=== PATIENT | female | born 1945 | race Caucasian/White ===

== ENCOUNTER 2019-07-13 11:37 | Inpatient (IN) | payer MEDICARE, BC ==
[~2019-07-13] VITALS: Ht 162.6 cm; Wt 57.2 kg
[2019-07-13] MEDS ORDERED: LOSA100T3 PO (11:55)
[2019-07-13] MEDS ORDERED: QUET25TA PO (11:55)
[2019-07-13] MEDS ORDERED: CHLO25TA2 PO (11:55)
[2019-07-13] MEDS ORDERED: TAMO20TA4 PO (11:55)
[2019-07-13] MEDS ORDERED: LORA-114 PO (11:55)
[2019-07-13] MEDS ORDERED: FLUT9.9S NS (11:55)
--- NOTE | 2019-07-13 12:28 | NUR ---
MRSA swabb collected and delivered to lab.
--- NOTE | 2019-07-13 12:37 | NUR ---
Patient belongings accounted for and patient is eating lunch and tolerating meal 100%.
--- NOTE | 2019-07-13 12:50 | NUR ---
Patient requested to make telephone call to her daughter. Telephone provided.
--- NOTE | 2019-07-13 14:05 | NUR ---
Telephone report given to receiving rn. by rn Jose Alfredo and patient taken via gurney to room 141A. Patient accompanied by family. AAOx3. vitals stable. belongings sent with patient.
--- NOTE | 2019-07-13 14:17 | NUR ---
PT ARRIVED TO UNIT ON GURNEY ACCOMPANIED BY DAUGHTER AND MINOR GRANDSON. INFORMED DAUGHTER THAT MINORS ARE NOT ALLOWED IN THE UNIT FOR SAFETY REASONS. PT'S DAUGHTER THEN BECAME QUITE AGGRESSIVE, RAISING HER VOICE "I KNOW! WHY ARE YOU BEING SO AGGRESSIVE?" BUT DAUGHTER CONTINUED NOT TAKING MINOR CHILD OUT ONLY UNIT FREQUENT REINFORCEMENT. STATED SHE WANTED TO SPEAK TO FIELD SPEC OUTSIDE. PT'S DAUGHTER THEN BEGAN BECOMING VERY VERBALLY AGGRESSIVE, REITERATING THAT SHE WANTED TO SPEAK MORE ABOUT HER MOTHERS CARE. REITERATED THAT SHE KNOWS ALL THE POLICIES BECAUSE 'I'M A CLINICAL PSYCHOLOGIST, I'M BASICALLY A DOCTOR." CONTINUES TO BE QUITE AGGRESSIVE, GETTING INTO WRITERS CLOSE PERSONAL SPACE. REQUESTED TO PLEASE STEP AWAY A BIT, PT'S DAUGHTER RESPONDED "I'M NOT GETTING IN YOUR FACE, I AIN'T GONNA HIT YOU, DON'T FLATTER YOURSELF." SECURITY PRESENT DURING INTERACTION. REQUESTED TO SPEAK TO STAFF NURSE. STAFF NURSE SPEAKING TO DAUGHTER AT THIS TIME.
--- NOTE | 2019-07-13 14:20 | NUR ---
Gps.Light Truck Driver- Staff able to talked to Anne (daughter) outside the door, off the unit, with Salesperson Jewelry around. Informations obtained, daughter has a son that is a minor and unable to speak well(delayed) Daughter lives outside the [place], claimed she's from [place], flying back and forth when the Home health staff calls her and reports patient noted having visual hallucinations, , claiming her students are having sex on her table ,patient also not taking her seroquel as prescribed by her PCP.Per daughter ,patient gets agitated when being confronted when not taking her medications. Per daughter patient pt. ends up in [facility] [place] in a gas station with no shoes and no purse .Claimed hallucinations started on June 17 started her on seroquel [address] Eagle . Patient also was noted knocking doors of her neighbors, patient dont remember episodes and gets agitated when being confronted. Patient wears a black sleeves on her right arm to help her lymphedema from her right breast CA.(2018), remains on tamoxifen 20 mg daily .Oriented to unit settings, routine admission care done. Safety reviewed, emphasized.
[2019-07-13 14:30] VITALS: BP 164/92
[2019-07-13] MEDS ORDERED: MAG HYDROX/AL HYDROX/SIMETH 30 ML LIQUID UDC PO PRN (14:45)
[2019-07-13] MEDS ORDERED: ACETAMINOPHEN 325 MG TABLET PO PRN (14:45)
[2019-07-13] MEDS ORDERED: MAGNESIUM HYDROXIDE 30 ML LIQUID UDC PO PRN (14:45)
--- NOTE | 2019-07-13 18:09 | NUR ---
Gps/Slate Picker- Patient was able to talked to her daughter on the phone. Patient noted difficulty finding her room . Ate dinner in the dinning room.Claimed her right arm had been bothering her this pm, black sleeves on to help with the swelling(edema), per pt. needed to changed q 2 days.
[2019-07-13 20:00] VITALS: BP 151/71
[2019-07-14 07:30] VITALS: BP 155/92
[2019-07-14] MEDS: LOSARTAN POTASSIUM 50 MG TABLET PO SCH (08:57)
[2019-07-14] MEDS ORDERED: TAMOXIFEN CITRATE 10 MG TABLET PO SCH (09:00)
[2019-07-14] MEDS: LORATADINE 10 MG TABLET PO SCH (09:00)
--- NOTE | 2019-07-14 11:49 | NUR ---
Pt reports she eats cheese, milk, dairy. Recommend change diet to soft vegetarian. Addendum: 07/14/19 at [address] Amended: Links added.
[2019-07-14] MEDS: CHLORTHALIDONE 25 MG TABLET PO SCH (12:13)
[2019-07-14 12:27] LABS: BASOPHILS % (AUTO) 1.2 % (0.0-2.0); EOSINOPHILS # (AUTO) 0.1 K/uL (0.0-0.7); EOSINOPHILS % (AUTO) 4.2 % (0.0-7.0); HEMATOCRIT 39.2 % (31.2-41.9); HEMOGLOBIN 13.1 g/dL (10.9-14.3); LYMPHOCYTES # (AUTO) 0.5 K/uL (20.0-40.0); LYMPHOCYTES % (AUTO) 18.3 % (20.5-51.5); MEAN CORPUSCULAR HEMOGLOBIN 30.1 uug (24.7-32.8); MEAN CORPUSCULAR HGB CONC 34 g/dL (32.3-35.6); MEAN CORPUSCULAR VOLUME 89.7 fL (75.5-95.3); MONOCYTES # (AUTO) 0.2 K/uL (2.0-10.0); MONOCYTES % (AUTO) 9.8 % (0.0-11.0); NEUTROPHILS # (AUTO) 1.7 K/uL (1.8-8.9); NEUTROPHILS % (AUTO) 66.5 % (38.5-71.5); PLATELET COUNT (AUTO) 183 K/uL (179-408); RED BLOOD CELL COUNT(AUTO) 4.37 MIL/uL (3.63-4.92); WHITE BLOOD COUNT (AUTO) 2.5 K/uL (3.8-11.8)
[2019-07-14 12:35] LABS: ALANINE AMINOTRANSFERASE 17 U/L (14-59); ALKALINE PHOSPHATASE 69 U/L (50-136); ASPARTATE AMINOTRANSFERASE 15 U/L (15-37); BILIRUBIN,TOTAL 0.4 mg/dL (0.2-1.0); CARBON DIOXIDE 30 mmol/L (21-32); CHLORIDE 108 mmol/L (98-107); GLUCOSE 99 mg/dL (74-106); MAGNESIUM 2.1 mg/dL (1.8-2.4); POTASSIUM 3.8 mmol/L (3.5-5.1); TOTAL PROTEIN, SERUM 6.5 g/dL (6.4-8.2); UREA NITROGEN, BLOOD 12 mg/dL (7-18)
[2019-07-14 12:43] LABS: THYROID STIMULATING HORMONE 1.923 mIU/mL (0.358-3.740)
[2019-07-14 13:56] LABS: EOSINOPHILS % (MANUAL) 2 % (0-8); LYMPHOCYTES % (MANUAL) 16 % (20-40); MONOCYTES % (MANUAL) 2 % (2-10); NEUTROPHILS % (MANUAL) 80 % (42-75)
[2019-07-14] MEDS: TAMOXIFEN CITRATE 10 MG TABLET PO SCH (15:26)
--- NOTE | 2019-07-14 15:36 | NUR ---
Gps/Accounts Receivable Coordinator- Had been quiet, interacting with her roommate, speech occ. gets incoherent. Hesitancy taking her med. wants to see the order, and wants staff to call her PMD. she does not want to take wrong medication per patient. Reassured , reviewed medications .
--- NOTE | 2019-07-14 15:41 | NUR ---
Gps/Magnetic Locater- Patient refusing to removed bra, claimed she needed support on her right breast r/t to hx of right breast CA. Wears black elastic sleeves for her right arm lymphedema .Daughter to bring replacement for the sleeves , claimed needed to changed q 2 days due to be change today.
[2019-07-14 16:00] VITALS: BP 159/81
--- NOTE | 2019-07-14 16:22 | NUR ---
Gps/Charlotte Rodríguez(daughter) in to visit, brought 1 black polyester pants and 1 t-shirt(black and white stripe), box of jair crackers, getorade lemon drink , grapes , added to belonging list. Also changed sleeves (elastic support for pt. right arm).Patient daughter requesting to talk to Psychiatrist and Replanting Machine Crewman, claimed they have a plan to place her Mom to a Memory care center. Instructed to call tomorrow and will informed Psychiatrist she is requesting to talk to him.
--- NOTE | 2019-07-14 18:33 | NUR ---
Gps/Advertising Manager- Patient was taken to shower and was showered with min assist. Beige bra removed and put in the laundry and stipe underwear marked with her name . Per daughter will be back tomorrow at 1700 to visit, also wants to talked to Cable Systems Installer, instructed and encouraged to call in the morning instead .
[2019-07-14 20:09] VITALS: BP 156/95
[2019-07-14 21:00] VITALS: BP 177/92
[2019-07-14] MEDS: risperiDONE 0.5 MG TABLET PO SCH (21:00)
[2019-07-14] MEDS: RIVASTIGMINE TARTRATE 1.5 MG CAPSULE PO SCH (21:00)
--- NOTE | 2019-07-14 21:00 | NUR ---
Level Glass Vial Filler Mark paged through [employer] regarding Pt's elevated BP. Initially was 156/95, HR 80 at 1999. In the meantime, Pt refused scheduled HS Exelon 1.5mg and Risperdal 0.5mg stating she "is too sensitive to medication." At approximately Pt reported feeling "lightheaded." Pt appeared anxious and upset. VS were re-taken and BP noted to be 177/92, HR 72. Mark called back and stated she needed more time to look at the Pt's chart due to the multiple allergies on file. Pt placed in bed and educated regarding falls precautions. Pt offered Tylenol and Ativan 0.5mg, both refused. Awaiting further orders at this time. Pt breathing even and unlabored at this time, will continue to monitor.
--- NOTE | 2019-07-14 23:45 | NUR ---
Re-check of BP 139/94. Pt states she is no longer lightheaded. No new orders from [facility].
[2019-07-15 00:43] VITALS: BP 139/94
--- NOTE | 2019-07-15 06:32 | NUR ---
Pt resting comfortably in bed breathing even and unlabored. In no acute distress, will endorse to day shift.
[2019-07-15 07:30] VITALS: BP 149/93
[2019-07-15] MEDS: LORATADINE 10 MG TABLET PO SCH (09:00)
[2019-07-15] MEDS: CHLORTHALIDONE 25 MG TABLET PO SCH (09:00)
[2019-07-15] MEDS: RIVASTIGMINE TARTRATE 1.5 MG CAPSULE PO SCH ×3 (09:00→20:06)
[2019-07-15] MEDS: LOSARTAN POTASSIUM 50 MG TABLET PO SCH (09:00)
[2019-07-15] MEDS: risperiDONE 0.5 MG TABLET PO SCH ×4 (09:00→22:15)
[2019-07-15] MEDS: TAMOXIFEN CITRATE 10 MG TABLET PO SCH (09:10)
[2019-07-15 15:24] VITALS: BP 95/55
--- NOTE | 2019-07-15 16:18 | NUR ---
Initial Discharge Note: Patient lives at home [ [address], [place] [address]; [phone]]. Per daughter, " I would like my mother to return home, I am arranging for her to have two caregivers attend to her needs when she returns". Patient's daughter is refusing placement at this time. Orthodontist will continue to meet with patient, and collaborate with patient, family, and MD on a safe and proper discharge plan.
[2019-07-15] MEDS ORDERED: FLUTICASONE PROP NASAL SPRAY 16 GM BOTTLE NS SCH (17:00)
--- NOTE | 2019-07-15 20:15 | NUR ---
Received Pt in her room, brighter affect this shift. Remains paranoid and fearful of medications, states she "is sensitive to everything." Pt educated on Exelon and Risperdal and given literature with information as requested. Pt refused Risperdal but took the Exelon. Denies SI/HI/AH/VH. VS stable, denies pain. In no acute physical distress, will continue to monitor.
[2019-07-15 20:34] VITALS: BP 136/82
[2019-07-15] MEDS ORDERED: CLONAZEPAM 1 MG TABLET PO SCH (21:00)
--- NOTE | 2019-07-15 23:41 | NUR ---
Late Medication Administration Note: Pt's daughter Anne called at approximately 2200 and inquired about her mother and if she took her medications. Anne was told that her mother refused HS Risperdal 0.5mg but took the Exelon 1.5mg that was prescribed. Anne spoke with Mignon by phone at that time, and Pt agreed to take the Risperdal. Pt educated on reportable s/e and verbalized understanding.
[2019-07-16 07:30] VITALS: BP 147/79
[2019-07-16] MEDS: LOSARTAN POTASSIUM 50 MG TABLET PO SCH (08:58)
[2019-07-16] MEDS: TAMOXIFEN CITRATE 10 MG TABLET PO SCH (08:59)
[2019-07-16] MEDS: RIVASTIGMINE TARTRATE 1.5 MG CAPSULE PO SCH ×3 (09:00→20:42)
[2019-07-16] MEDS: risperiDONE 0.5 MG TABLET PO SCH ×3 (09:00→20:42)
[2019-07-16 15:21] VITALS: BP 146/106
[2019-07-16 21:52] VITALS: BP 143/81
[2019-07-16 22:36] LABS: *BILIRUBIN,URIN NEGATIVE (NEGATIVE); *BLOOD, URINE NEGATIVE (NEGATIVE); *CLARITY,URINE CLEAR (CLEAR); *COLOR,URINE YELLOW (YELLOW); *KETONES,URINE NEGATIVE (NEGATIVE); *UROBILINOGEN,URINE 0.2 E.U./dl (NORMAL); LEUKOCYTE ESTERASE ,URINE TRACE (NEGATIVE); NITRITE, URINE NEGATIVE (NEGATIVE); PH,URINE 8.5 (5.0-8.0); UGLUCOSE NEGATIVE (NEGATIVE)
[2019-07-16 22:54] LABS: BACTERIA,URINE NONE SEEN /HPF (NONE SEEN); RBC,URINE 0-3 /HPF (0-3); SQUAMOUS EPITHELIAL CELL,UR FEW /HPF (NONE SEEN); WBC,URINE 0-3 /HPF (0-3); YEAST,URINE MODERATE /HPF (NONE SEEN)
--- NOTE | 2019-07-17 06:23 | NUR ---
No behavioral issues this shift. Vital signs stable. No acute distress noted. Denies pain. Med Compliant. Slept fairly well. Safety and comfort measures maintained t/o shift.
[2019-07-17 07:30] VITALS: BP 144/92
[2019-07-17] MEDS: RIVASTIGMINE TARTRATE 1.5 MG CAPSULE PO SCH ×2 (08:15→20:44)
[2019-07-17] MEDS: risperiDONE 0.5 MG TABLET PO SCH ×2 (08:15→20:44)
[2019-07-17] MEDS: LOSARTAN POTASSIUM 50 MG TABLET PO SCH (08:15)
[2019-07-17] MEDS: TAMOXIFEN CITRATE 10 MG TABLET PO SCH (08:15)
--- NOTE | 2019-07-17 10:00 | NUR ---
FIREARMS REPORT: Pitch Filler completed and submitted a [employer] firearms report for 5150 [employer] certification. A copy of report has been placed in patient chart.
[2019-07-17] MEDS ORDERED: FLUCONAZOLE 100 MG TABLET PO ONE (12:45)
[2019-07-17 16:00] VITALS: BP 144/82
--- NOTE | 2019-07-17 20:45 | NUR ---
RECEIVED PATIENT IN HER ROOM SITTING IN HER BED. SHE IS NOTED A/O X 2. CALM AND PLEASANT UPON APPROACHED. SHE IS FORGETFUL, REQUIRED MULTIPLE REDIRECTIONS. BLUNTED AFFECT, LOW MOOD. PATIENT WAS COMPLIANT WITH MEDICATION REGIMENT. V/S STABLE AT THIS TIME. FALL AND SAFETY PRECAUTION IN PLACE. PT IS REASSURED FOR HER SAFETY. WILL CONTINUE TO MONITOR.
[2019-07-17 20:49] VITALS: BP 126/72
[2019-07-17] MEDS ORDERED: ATORVASTATIN 10 MG TABLET PO SCH (21:00)
--- NOTE | 2019-07-17 22:00 | NUR ---
PATIENT NOTED ANXIOUS AND PREOCCUPIED ABOUT THE SAFETY LIGHTS THAT ARE UNDER HER BED. SHE STATED, "I DON'T FEEL SAFE IN THIS BED, THE LIGHTS UNDER MY BED CAN GENERATE A SPARK AND MY MATTRESS CAN GET CAUGHT IN A FIRE". PATIENT WAS REASSURED AND REDIRECTED; HOWEVER., SHE CONTINUE REQUESTING ANOTHER BED AND GETTING AGITATED. THE LIGHTS UNDER HER BED WERE TURNED OFF AND INSTEAD, THE BATHROOM LIGHT WAS TURNED ON FOR SAFETY AND FALL PRECAUTION. PATIENT WAS ABLE TO CALM DOWN AND FALL ASLEEP. WILL CONTINUE TO MONITOR.
[2019-07-18 07:30] VITALS: BP 146/89
[2019-07-18] MEDS: TAMOXIFEN CITRATE 10 MG TABLET PO SCH (09:16)
[2019-07-18] MEDS: RIVASTIGMINE TARTRATE 1.5 MG CAPSULE PO SCH (09:17)
[2019-07-18] MEDS: risperiDONE 0.5 MG TABLET PO SCH (09:19)
[2019-07-18 09:21] VITALS: BP 146/89
[2019-07-18] MEDS: LOSARTAN POTASSIUM 50 MG TABLET PO SCH (09:21)
--- NOTE | 2019-07-18 12:18 | NUR ---
Discharge Note: Patient�s daughter � Anne Asif [[phone]] has requested medical team to discharge patient today. Mold Blower informed patient�s psychiatrist � Dr. Casanova, who has agreed to break patient hold and have the patient leave against medical advice. Patient will be discharged today into the care of her daughter Anne. Patient pick-up by daughter is scheduled at 2:00pm. Per daughter, she will be taking patient home [ [address], [place] [address]; ]. Patient is scheduled for a follow-up appointment with Dr. Renee Doan � Primary Care Physician, on , July 25, 2019 at 2:20pm [[address], [place], [address]; ]. Patient is also to follow up with Dr. Ella Grijalva � Neurologist [[address], [place], [address]; ]. Mold Blower sent a continuing care packet to these providers. [facility] is also scheduled to conduct an evaluation at patient�s residence at 3:30pm. Per daughter, she has arranged for 24-hour caregiver for patient upon discharge. Patient was given outpatient mental health resources to [facility] .
--- NOTE | 2019-07-18 13:34 | NUR ---
Patient's psych medications were called in to the patient's pharmacy, [facility] ([phone]).
--- NOTE | 2019-07-18 14:35 | NUR ---
1400 Discharged instructions given to daughter , Anne regarding medications to continue at home, Prescription both psych and medicine given to patient's daughter and intructed alon filled to patient pharmacy- daughter verbalized understanding. 1430 Patient discharged home with daughter via private car. Patient alert and ox 2-3, denies SI/HI. No delusion. No a/v hallucination noted.
== END 2019-07-18 18:16 | disposition home health service (06) | DRG 885 ==
LOC: ER 11:37 → GPS 13:54
PROVIDERS: ADMIT Psychiatry & Neurology Psychiatry; ATTEND Registered Nurse
DX: F29 Unspecified psychosis not due to a substance or known physiological condition (principal); F03.91 Unspecified dementia, unspecified severity, with behavioral disturbance; B37.49 Other urogenital candidiasis; Z91.83 Wandering in diseases classified elsewhere; E87.6 Hypokalemia; Z90.11 Acquired absence of right breast and nipple; Z90.49 Acquired absence of other specified parts of digestive tract; Z79.899 Other long term (current) drug therapy; Z88.6 Allergy status to analgesic agent; Z88.1 Allergy status to other antibiotic agents; Z88.0 Allergy status to penicillin; J30.9 Allergic rhinitis, unspecified; C50.911 Malignant neoplasm of unspecified site of right female breast; Z79.818 Long term (current) use of other agents affecting estrogen receptors and estrogen levels; D70.1 Agranulocytosis secondary to cancer chemotherapy; T38.6X5A Adverse effect of antigonadotrophins, antiestrogens, antiandrogens, not elsewhere classified, initial encounter; Y92.89 Other specified places as the place of occurrence of the external cause; I10 Essential (primary) hypertension; E78.5 Hyperlipidemia, unspecified; Z87.19 Personal history of other diseases of the digestive system
CPT/HCPCS: 36415; 71045; 83735; 84100; 84443; 85025; 87086; 93005; J3535; J8999